=== PATIENT | female | born 1995 | race Caucasian/White ===

== ENCOUNTER 2021-02-02 20:15 | Emergency (ER) | payer OTHER ==
[~2021-02-02 20:15] MED LIST: MOTRIN600 MG PO
[2021-02-02 21:18] LABS: BASOPHIL 0.2 % (0-2); EOSINOPHIL 1.2 & (0-5); HCT 37.7 % (37.0-47.0); HGB 12.7 g/dl (12.5-16.0); LYMPHOCYTE 31.9 % (15-48); MCH 30.9 pg (25.0-31.0); MCHC 33.7 g/dL (32.0-36.0); MCV 91.7 fL (78.0-100.0); MONOCYTE 7.1 % (0-12); MPV 10.4 fL (6.0-9.5); NEUTROPHIL 59.6 % (41-80); PLT 257 K/uL (150-400); RBC 4.11 M/uL (4.20-5.40); RDW 11.7 % (11.5-14.0); WBC 8.12 K/uL (4.0-10.5)
[2021-02-02 21:35] LABS: ALBUMIN 3.8 g/dL (3.4-5.0); BILIRUBIN NEGATIVE (NEGATIVE); BILIRUBIN - TOTAL 0.2 mg/dL (0.2-1.0); BLOOD NEGATIVE Ery/uL (NEGATIVE); BUN/CREAT RATIO (CALC) 11.3 RATIO; CLARITY CLEAR (CLEAR); COLOR YELLOW (YELLOW); CREATININE 0.71 mg/dL (0.51-0.95); GLOBULIN (CALCULATION) 3.3 g/dL; GLUCOSE (U) NORMAL (NORMAL); LEUKOCYTES NEGATIVE Leu/uL (NEGATIVE); NITRITE NEGATIVE (NEGATIVE); POTASSIUM 3.5 mmol/L (3.5-5.1); PROTEIN NEGATIVE (NEGATIVE); SPECIFIC GRAVITY 1.025 (1.001-1.030); TOTAL PROTEIN 7.1 g/dL (6.4-8.2); UROBILINOGEN 0.2 mg/dL (0.2-1.0)
[2021-02-05 05:08] LABS: CHLAMYDIA TRACHOMATIS, NAA Negative (Negative); NEISSERIA GONORRHOEAE, NAA Negative (Negative)
== END 2021-02-02 23:19 | disposition home or self-care (01) ==
LOC: FER 20:15
PROVIDERS: Emergency Medicine
DX: R10.9 Unspecified abdominal pain (principal); R91.1 Solitary pulmonary nodule; F41.9 Anxiety disorder, unspecified; F32.9 Major depressive disorder, single episode, unspecified; Z88.0 Allergy status to penicillin; Z79.899 Other long term (current) drug therapy
CPT/HCPCS: 36415; 80053; 81003; 83690; 85025; 87210; 87491; 87591; 93005; J1170; J2405; J7030; Q9967